=== PATIENT | male | born 1955 | race Caucasian/White ===

== ENCOUNTER 2017-03-14 13:03 | Observation (INO) | payer OTHER ==
[~2017-03-14] VITALS: Ht 188 cm; Wt 130.1 kg
[~2017-03-14 13:03] MED LIST: GABAPENTIN600 MG PO; HUMALIN R100 UNITS/ SC; LANTUS SOL100 UNITS/; NICOTINE T21 MG/24 H TOP; PROTONIX40 MG PO; VICODIN HP1 TA1 PO
--- NOTE | 2017-03-14 15:46 | DIAGNOSTIC IMAGING REPORT ---
PROCEDURE: CT ABD/PELVIS WITH CONTRAST INDICATION: Lower abdominal pain and vomiting. Diarrhea. Elevated white blood count (14,800). Prior cholecystectomy. TECHNIQUE: 145 ml of Isovue 300 were injected intravenously and axial images were obtained of the entire abdomen and pelvis with sagittal and coronal reformations. COMPARISON: Comparison made to CT abdomen pelvis on 09/06/2016. FINDINGS: ABDOMEN: Cholecystectomy (surgical clips). Liver, spleen, pancreas, kidneys, and aorta are normal. Bowel pattern is normal, including appendix. Mild degenerative changes of the lumbar spine. PELVIS: Mild sigmoid diverticulosis, but no evidence of diverticulitis. Small amount of fluid in the rectum. Mild enlargement prostate (4.5 cm). IMPRESSION: 1. Status post cholecystectomy. 2. Mild increased fluid in the rectum. Consider enterocolitis. 3. Mild sigmoid diverticulosis. No evidence of diverticulitis. 4. Mild enlargement of the prostate. 5. Findings discussed with Dr. Angela Jones. All CT scans at this facility use dose modulation, iterative reconstruction, and/or weight-based dosing when appropriate to reduce radiation dose to as low as reasonably achievable.
--- NOTE | 2017-03-14 16:06 | ED NURSING NOTES ---
Clinical Report - Nurses [facility] [place] [address] 03/14/2017 13:05 Patient: TEX GIRON TRIAGE Triage time 13:13. Acuity: LEVEL 3. Chief Complaint: ABDOMINAL PAIN, NAUSEA, VOMITING and DIARRHEA and (and cramping). Alert. SEPSIS SCREEN: Sepsis Screen. Negative (no infection suspected/documented). --13:18 Palmira Mejía R.N. 13:14 03/14/17. BP: 148/83. HR: 96. RR: 18. O2 saturation: 94%. Temp: 98.4 F. Pain level now: 05/13. --13:18 Palmira Mejía R.N. Weight: 127 kg. Height/Length: 74 inches. BMI: 36. --13:16 Palmira Mejía R.N. Medications Gabapentin Oral (Tablet 600 mg) 2 tablets, 2x a day. Hydrocodone-Acetaminophen Oral (Tablet 10-325 mg) 1 tablet, 2x a day as needed. Insulin Regular Human Injection (Solution 100 unit/mL), Taken on sliding scale. Lantus Subcutaneous 50 units, 2x a day. --13:16 Palmira Mejía R.N. Allergies No Known Drug Allergy. --13:16 Palmira Mejía R.N. History Arrived by private vehicle. Historian: patient and family. Accompanied by family. Primary physician (Sameera). Onset. (3 days ago). SOCIAL HX: Heavy tobacco smoker (cigarette)- 1-2 packs per day. Occasional alcohol use. No drug use. The patient was not exposed to MRSA. --13:18 Palmira Mejía R.N. PROBLEMS: Weakness. Diabetes Mellitus. --13:18 Palmira Mejía R.N. ADDITIONAL SURGERIES: Cholecystectomy. --13:18 Palmira Mejía R.N. Interventions ID band on patient. To room. --13:18 Palmira Mejía R.N. NURSING PROGRESS NOTES 13:35 03/14/2017 Site #1 started via IV in the right antecubital space with an 20g angiocath, with aseptic technique and good blood return; one attempt. Blood drawn: rainbow set. Labeled in the presence of the patient and sent to the lab. Saline lock flushed with saline. --13:35 Palmira Mejía R.N. 13:35 03/14/2017 Started bag #1 1000 mL IV Fluids IV NS (Saline); at 999 mL/hr via site #1 via IV pump. Confirmed 5 rights. --13:35 Palmira Mejía R.N. 13:36 03/14/2017 Zofran (Ondansetron HCl) IVP 8 mg given over 3 minute(s) via site #1. Confirmed 5 rights. --13:36 Palmira Mejía R.N. 13:36 03/14/17. Patient identifiers checked. Call light placed in reach. Bed placed in lowest position. Patient ready for evaluation- chart flagged. --13:36 Palmira Mejía R.N. 13:33. EKG time: (1333). EKG was ordered, performed by a tech and shown to the ED physician. --13:37 Adam Schwab, LAURE Tech1 14:21 03/14/17. Patient ID band checked for patient name and birthdate. Clean catch urine collected with return of gracy-colored urine; sample sent to lab for urinalysis and culture. Specimen labeled in the presence of the patient. --14:21 Palmira Mejía R.N. 14:30. Oxygen administered by nasal cannula at 2 liters. --14:35 Palmira Mejía R.N. 14:35 03/14/2017 IV Fluids IV NS Bag Change: bag #1 completed. Total amount infused: 1000. STARTED bag #2 (1000 mL) at 1000 mL/hr via IV pump. Confirmed 5 rights. IV patency established. IV site checked: no pain, redness, or swelling. IV flushed thoroughly. --14:35 Palmira Mejía R.N. 14:40 03/14/2017 PHENERGAN (Promethazine HCl) IVP 25 mg given over 2 minute(s) via site #1. Allergies verified and confirmed 5 rights. --14:42 Palmira Mejía R.N. 14:41 03/14/17. ( Pt assisted to reposition himself in bed.). --14:41 Palmira Mejía R.N. 14:30 03/14/17. BP: 145/98. HR: 88. RR: 18. O2 saturation: 98%. --15:30 Palmira Mejía R.N. 15:30 03/14/17. BP: 131/74. HR: 87. RR: 18. O2 saturation: 98%. --15:31 Palmira Mejía R.N. ( RT in room drawing ABGs). --15:31 Palmira Mejía R.N. 16:05 03/14/17. BP: 137/88. HR: 84. RR: 18. O2 saturation: 97%. Temp: deferred. Pain level now: 02/10. --16:10 Joslyn Wesley R.N. 16:05. ( Pt ambulated to bathroom, steady on feet .). --16:10 Joslyn Wesley R.N. 16:33 03/14/2017 IV Fluids IV NS Bag Change: bag #2 completed. Total amount infused: 1000. STARTED bag #3 (1000 mL) at 1000 mL/hr via IV pump. Confirmed 5 rights. IV patency established. IV site checked: no pain, redness, or swelling. IV flushed thoroughly. --16:33 Palmira Mejía R.N. 16:39 03/14/17. ( Accucheck 67.). --16:39 Palmira Mejía R.N. 16:42 03/14/17. ( Pt given 2 juices and jello.). --16:42 Palmira Mejía R.N. DISPOSITION / DISCHARGE 17:37 03/14/17. BP: 125/64. HR: 79. RR: 18. O2 saturation: 99% on nasal cannula at 2 liters/minute. Temp: 98.4 F. Pain level now: 04/12. --17:42 Palmira Mejía R.N. 17:43 03/14/17. Condition at departure: improved. Disposition: observation in Acute Care. Report was given via a phone call. Report included patient's care, treatment, medications, reviewed medication reconcilliation, and condition (including any recent changes or anticipated changes). All questions were answered. Report was acknowledged and care was transferred. (to Brandie). --17:43 Palmira Mejía R.N. Locked/Released at 03/24/2017 7:57 by Michelle Sotelo R.N.
--- NOTE | 2017-03-14 16:06 | ED ORDER SUMMARY ---
..... 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 verbal order read back to Kristin JUSTIN) (Ack 14:21 Mickey) (14:30 LSullivan R.N.) Acetone, Serum Urgent (14:29 03/14/2017 Kristin JUSTIN) (Ack 14:31 Mickey) (14:47 MWinterer R.N.) CT Abd/Pel w Cont (Yes) (N/A) Urgent (14:33 03/14/2017 Kristin JUSTIN) (Ack 14:34 Mickey) (15:08 Bethany) ABG (G) Urgent (15:05 03/14/2017 Kristin JUSTIN) (Ack 15:11 Mickey) (15:41 KEpting) MEDICATION ORDERS: Phenergan IV 25 mg (HIGH ALERT MEDICATION, NOW) (14:34 03/14/2017 Kristin JUSTIN) (14:42 LSullivan R.N.) IV FLUIDS: IV NS : initial bolus 1000 mL (1000 mL/hr), then none - (NOW) (13:18 03/14/2017 Kristin JUSTIN) (13:35 LSullivan R.N.) Zofran IV 8 mg (NOW) (13:18 03/14/2017 Kristin JUSTIN) (13:36 Prasanth R.N.) IV NS : initial bolus 1000 mL (1000 mL/hr), then 1000 mL/hr (NOW) (14:27 03/14/2017 Kristin JUSTIN) (Ack 14:36 LSullivan R.N.) Levaquin IV 500 mg/100mL (NOW) (15:50 03/14/2017 Kristin JUSTIN) (Cancelled: Other16:05 Kristin JUSTIN) Flagyl IV 500 mg/100mL (NOW) (15:50 03/14/2017 Kristin JUSTIN) (Cancelled: Other16:05 Kristin JUSTIN) ORDER SHEET NOTES: [Electronically signed by Angela Jones MD (22:24 03/14/2017)] [Electronically signed by Michelle Sotelo R.N. (07:57 03/24/2017)] [Electronically locked/signed by Michelle Sotelo R.N. (07:57 03/24/2017)]
--- NOTE | 2017-03-14 16:06 | ED ORDER SUMMARY ---
..... 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 verbal order read back to Kristin JUSTIN) (Ack 14:21 Mickey) (14:30 LSullivan R.N.) Acetone, Serum Urgent (14:29 03/14/2017 Kristin JUSTIN) (Ack 14:31 Mickey) (14:47 MWinterer R.N.) CT Abd/Pel w Cont (Yes) (N/A) Urgent (14:33 03/14/2017 Kristin JUSTIN) (Ack 14:34 Mickey) (15:08 Bethany) ABG (G) Urgent (15:05 03/14/2017 Kristin JUSTIN) (Ack 15:11 Mickey) (15:41 KEpting) MEDICATION ORDERS: Phenergan IV 25 mg (HIGH ALERT MEDICATION, NOW) (14:34 03/14/2017 Kristin JUSTIN) (14:42 LSullivan R.N.) IV FLUIDS: IV NS : initial bolus 1000 mL (1000 mL/hr), then none - (NOW) (13:18 03/14/2017 Kristin JUSTIN) (13:35 LSullivan R.N.) Zofran IV 8 mg (NOW) (13:18 03/14/2017 Kristin JUSTIN) (13:36 Prasanth R.N.) IV NS : initial bolus 1000 mL (1000 mL/hr), then 1000 mL/hr (NOW) (14:27 03/14/2017 Kristin JUSTIN) (Ack 14:36 LSullivan R.N.) Levaquin IV 500 mg/100mL (NOW) (15:50 03/14/2017 Kristin JUSTIN) (Cancelled: Other16:05 Kristin JUSTIN) Flagyl IV 500 mg/100mL (NOW) (15:50 03/14/2017 Kristin JUSTIN) (Cancelled: Other16:05 Kristin JUSTIN) ORDER SHEET NOTES: [Electronically signed by Angela Jones MD (22:24 03/14/2017)] [Electronically signed by Michelle Sotelo R.N. (07:57 03/24/2017)] [Electronically locked/signed by Michelle Sotelo R.N. (07:57 03/24/2017)]
--- NOTE | 2017-03-14 16:06 | ED CLINICAL REPORT ---
Clinical Report - Physicians/Mid Levels [facility] [address] [place] [address] 03/14/2017 13:05 Patient: TEX GIRON Time Seen: 13:17. Arrived- By private vehicle. Historian- patient. HISTORY OF PRESENT ILLNESS Chief Complaint: VOMITING. This started about 3 days ago and is still present. No recent travel. He has had nausea, vomiting, diarrhea and moderate, crampy abdominal pain. No black stools, bloody stools, constipation, flank pain or history of possible bad food exposure. No known contact with a sick individual or change in routine. Has not recently been camping or on antibiotics. The illness is described as moderate. Similar symptoms previously: Occasionally. Recent medical care: Not recently seen/assessed. REVIEW OF SYSTEMS No fever, muscle aches, difficulty with urination, dark urine or headache. No sore throat, cough, chest pain, difficulty breathing or excessive urination. No skin rash, jaundice, back pain, fainting episodes or blurred vision. The patient has had dizziness. All systems otherwise negative, except as recorded above. PAST HISTORY Problems: Weakness. Diabetes Mellitus. Additional Surgeries: Cholecystectomy. Medications: Gabapentin Oral (Tablet 600 mg) 2 tablets, 2x a day. Hydrocodone-Acetaminophen Oral (Tablet 10-325 mg) 1 tablet, 2x a day as needed. Insulin Regular Human Injection (Solution 100 unit/mL), Taken on sliding scale. Lantus Subcutaneous 50 units, 2x a day. Allergies: No Known Drug Allergy. SOCIAL HISTORY Smoker- current status unknown. Occasional alcohol use. No drug use. ADDITIONAL NOTES The nursing notes have been reviewed. PHYSICAL EXAM Vital Signs: 03/14/2017 13:14 BP: 148/83. HR: 96. RR: 18. O2 saturation: 94%. Temp: 98.4 F. Pain level now: 8/10. Have been reviewed. Appearance: Alert. Oriented X3. No acute distress. (Patient appears moderately chronically ill.). Eyes: Pupils equal, round and reactive to light. Eyes normal inspection. ENT: Nose normal. Neck: Normal inspection. CVS: Normal heart rate and rhythm. Heart sounds normal. Pulses normal. Respiratory: No respiratory distress. Breath sounds normal. Abdomen: Soft and nontender. Obese. Back: Normal inspection. No CVA tenderness. Skin: Skin warm and dry. Normal skin color. No rash. Normal skin turgor. Extremities: No lower extremity edema. Neuro: (Patient is ambulatory without assistance. He has an essential tremor. Patient is grossly oriented and has no focal deficits.). LABS, X-RAYS, AND EKG EKG: EKG time: (1333). Normal sinus rhythm. Rate: 94. Normal P waves. Normal KORTNEY. Left anterior fascicular block. Normal axis. Normal ST and T waves, QT and QTc. Changes present when compared to prior EKG. (Sep 2016). The study has been interpreted contemporaneously by me. The study has been independently viewed by me. The EKG appears to be a good tracing. Laboratory Tests: UA-Culture if indicated: (SYLWIA: 03/14/2017 14:11) ( [facility] 03/14/2017 15:20) Final results Test Result Flag Units (Reference) URINE COLOR DARK YELLOW URINE APPEARANCE CLEAR URINE GLUCOSE NEGATIVE (NEGATIVE) URINE BILIRUBIN ICTOTEST NEGATIVE (NEGATIVE) URINE KETONE TRACE (NEGATIVE) URINE SPECIFIC GRAVITY 1.020 (1.010-1.030) URINE PH 8.0 (5.0-8.0) URINE PROTEIN 3+ (NEGATIVE) URINE UROBILINOGEN 1.0 EU/dL (0.2-1.0) URINE NITRITE NEGATIVE (NEGATIVE) URINE BLOOD NEGATIVE (NEGATIVE) URINE LEUK ESTERASE NEGATIVE (NEGATIVE) URINE RBC 3-5 rbc/hpf (0-1) URINE WBC 0-1 wbc/hpf (0-1) URINE EPITHELIAL CELLS RARE EPI/hpf (0-5) URINE BACTERIA NONE SEEN (NONE SEEN) URINE COMMENT CULT NOT INDICATED 2+ AMORPHOUS1+ MUCUSURINE CULTURES ARE SET-UP BASED ON THE FOLLOWING CRITERIA:POSITIVE NITRITEPOSITIVE LEUKOCYTE ESTERASEGREATER THAN 10 WHITE BLOOD CELLSMODERATE (2+) OR GREATER BACTERIA CBC w Diff: (SYLWIA: 03/14/2017 13:20) ( [facility] 03/14/2017 13:46) Final results Test Result Flag Units (Reference) WHITE BLOOD COUNT 14.8 H K/uL (4.5-11.5) RED BLOOD COUNT 5.85 M/uL (4.50-5.90) HEMOGLOBIN 16.9 gm/dL (13.5-17.5) HEMATOCRIT 49.8 % (41.0-53.0) MEAN CELL VOLUME 85 fL (80-100) MEAN CORPUSCULAR HGB 29 pg (26-34) MEAN CORPUSCULAR HGB CONC 34 g/dL (31-37) RED CELL DISTRIBUTION WIDTH 13.6 % (11.6-14.8) PLATELET COUNT 422 H K/uL (150-400) NEUTROPHIL % 61.4 % (50-75) LYMPH % 29.9 % (25-40) MONO % 6.7 % (3-14) EOSINOPHIL % 1.6 % (0-4) BASOPHIL % 0.4 % (0-2) Acetone, Serum: (SYLWIA: 03/14/2017 13:20) ( [facility] 03/14/2017 14:46) Final results Test Result Flag Units (Reference) ACETONE, SERUM QUALITATIVE POSITIVE (NEGATIVE) CHEM 13 PANEL: (SYLWIA: 03/14/2017 13:20) ( [facility] 03/14/2017 14:08) Final results Test Result Flag Units (Reference) GLUCOSE 259 H mg/dL (70-110) BUN 20 H mg/dL (7-18) CREATININE 1.1 mg/dL (0.6-1.3) Estimated GFR >60 mL/min Estimated GFR- >60 mL/min Note: Persistent reduction over 3 months in eGFR<60 mL/min/1.73 m2 defines CKD. Patients with eGFR values>=60 mL/min/1.73 m2 may also have CKD if evidence ofpersistent proteinuria. Additional information may be foundat www.kidney.org. SODIUM 137 mmol/L (136-145) POTASSIUM 3.3 L mmol/L (3.5-5.1) CHLORIDE 97 L mmol/L (98-107) CARBON DIOXIDE 33 H mmol/L (21-32) CALCIUM 8.8 mg/dL (8.5-10.1) TOTAL PROTEIN 8.1 g/dL (6.4-8.2) ALBUMIN 3.2 L g/dL (3.3-5.0) BILIRUBIN, TOTAL 0.4 mg/dL (0.0-1.0) ALKALINE PHOSPHATASE 91 U/L (46-116) AST (SGOT) 17 U/L (15-37) ALT (SGPT) 18 U/L (12-78) MAGNESIUM 2.0 mg/dL (1.8-2.4) CPK 44 U/L (24-260) TROPONIN I <0.05 L ng/mL (0.00-1.5) TROPONIN REFERENCE RANGE:<0.1 NEGATIVE0.1-1.5 INDETERMINANT>1.5 POSITIVE ABG: (SYLWIA: 03/14/2017 15:05) ( [facility] 03/14/2017 15:34) Final results Test Result Flag Units (Reference) FIO2 28 % (20-101) ABG MODE OF DELIVERY NC MODIFIED JULY TEST POSITIVE? YES LITERS PER MIN. 2 L/MIN (0-20) ARTERIAL BLOOD GAS SITE RR ARTERIAL BLOOD GAS pH 7.46 H (7.35-7.45) ABG PCO2 48.1 H mmHg (35-45) ABG PO2 80.3 mmHg (80.0-100.0) ABG BASE EXCESS 8.9 *H mmol/L (-6.0--6.0) ABG HCO3 33.9 *H mmol/L (20.0-26.0) ABG TCO2 35.4 *H mmol/L (24.0-30.0) ABG HlSiX9c 64.1 H mmHg (7.0-14.0) *NOTE: Normal rangeis based on aFIO2 of 21% ABG SAT O2 96.5 % (95.1-100.0) ABG TOTAL HEMOGLOBIN 15.8 g/dL (14.0-18.0) ABG O2 HEMOGLOBIN 94.5 L % (95.0-100.0) ABG CARBOXYHEMOGLOBIN 1.9 H % (0.5-1.5) ABG METHEMOGLOBIN 0.2 L % (0.4-1.5) ABG RHEMOGLOBIN 3.4 % . Pulse Oximetry: 03/14/2017 13:14 O2 saturation: 94%. (FIO2 - room air). Interpretation: normal. PROGRESS AND PROCEDURES Course of Care: Patient was worked up for his vomiting, diarrhea, weakness, and abdominal cramping. He was found to have an elevated blood glucose at 259. His serum acetone was positive, but his anion gap was normal, and patient's ABG showed no acidosis. CT scan was ultimately performed on his abdomen and pelvis as his white blood cell count was 14.8, and this did demonstrate possible enterocolitis. Given the patient's dehydration, as well as his hyperglycemia and positive acetone, I did feel that the patient should be observed in the hospital to make sure that he did not descend into diabetic ketoacidosis. At the request of the admitting physician, I did cancel antibiotic orders in favor of observation to see if colitis would resolve on its own. Discussed case with patient's primary care provider, (Sameera). Reviewed test results and need for additional work-up. Agreed upon treatment plan and decision to admit. Health care provider will see patient in hospital. Old medical records reviewed. Disposition: Admitted to Acute Care. Condition: stable and serious. CLINICAL IMPRESSION Acute infectious colitis. No ischemic colitis. Moderate hyperglycemia. (Electronically signed by Angela Jones MD 03/14/2017 22:24) Addenda for BREE TEX Bernardo VisitID: [id number] Date: 03/14/2017 03/24/2017 7:57 Locked for billing purposes (Electronically signed by Michelle Sotelo R.N. - 03/24/2017 7:57)
--- NOTE | 2017-03-14 16:06 | ED CLINICAL REPORT ---
Clinical Report - Physicians/Mid Levels [facility] [address] [address] 03/14/2017 13:05 Patient: TEX GIRON Time Seen: 13:17. Arrived- By private vehicle. Historian- patient. HISTORY OF PRESENT ILLNESS Chief Complaint: VOMITING. This started about 3 days ago and is still present. No recent travel. He has had nausea, vomiting, diarrhea and moderate, crampy abdominal pain. No black stools, bloody stools, constipation, flank pain or history of possible bad food exposure. No known contact with a sick individual or change in routine. Has not recently been camping or on antibiotics. The illness is described as moderate. Similar symptoms previously: Occasionally. Recent medical care: Not recently seen/assessed. REVIEW OF SYSTEMS No fever, muscle aches, difficulty with urination, dark urine or headache. No sore throat, cough, chest pain, difficulty breathing or excessive urination. No skin rash, jaundice, back pain, fainting episodes or blurred vision. The patient has had dizziness. All systems otherwise negative, except as recorded above. PAST HISTORY Problems: Weakness. Diabetes Mellitus. Additional Surgeries: Cholecystectomy. Medications: Gabapentin Oral (Tablet 600 mg) 2 tablets, 2x a day. Hydrocodone-Acetaminophen Oral (Tablet 10-325 mg) 1 tablet, 2x a day as needed. Insulin Regular Human Injection (Solution 100 unit/mL), Taken on sliding scale. Lantus Subcutaneous 50 units, 2x a day. Allergies: No Known Drug Allergy. SOCIAL HISTORY Smoker- current status unknown. Occasional alcohol use. No drug use. ADDITIONAL NOTES The nursing notes have been reviewed. PHYSICAL EXAM Vital Signs: 03/14/2017 13:14 BP: 148/83. HR: 96. RR: 18. O2 saturation: 94%. Temp: 98.4 F. Pain level now: 8/10. Have been reviewed. Appearance: Alert. Oriented X3. No acute distress. (Patient appears moderately chronically ill.). Eyes: Pupils equal, round and reactive to light. Eyes normal inspection. ENT: Nose normal. Neck: Normal inspection. CVS: Normal heart rate and rhythm. Heart sounds normal. Pulses normal. Respiratory: No respiratory distress. Breath sounds normal. Abdomen: Soft and nontender. Obese. Back: Normal inspection. No CVA tenderness. Skin: Skin warm and dry. Normal skin color. No rash. Normal skin turgor. Extremities: No lower extremity edema. Neuro: (Patient is ambulatory without assistance. He has an essential tremor. Patient is grossly oriented and has no focal deficits.). LABS, X-RAYS, AND EKG EKG: EKG time: (1333). Normal sinus rhythm. Rate: 94. Normal P waves. Normal [place]RT[place]. Left anterior fascicular block. Normal axis. Normal ST and T waves, QT and QTc. Changes present when compared to prior EKG. (Sep 2016). The study has been interpreted contemporaneously by me. The study has been independently viewed by me. The EKG appears to be a good tracing. Laboratory Tests: UA-Culture if indicated: (SYLWIA: 03/14/2017 14:11) ( [facility] [place] 03/14/2017 15:20) Final results Test Result Flag Units (Reference) URINE COLOR DARK YELLOW URINE APPEARANCE CLEAR URINE GLUCOSE NEGATIVE (NEGATIVE) URINE BILIRUBIN ICTOTEST NEGATIVE (NEGATIVE) URINE KETONE TRACE (NEGATIVE) URINE SPECIFIC GRAVITY 1.020 (1.010-1.030) URINE PH 8.0 (5.0-8.0) URINE PROTEIN 3+ (NEGATIVE) URINE UROBILINOGEN 1.0 EU/dL (0.2-1.0) URINE NITRITE NEGATIVE (NEGATIVE) URINE BLOOD NEGATIVE (NEGATIVE) URINE LEUK ESTERASE NEGATIVE (NEGATIVE) URINE RBC 3-5 rbc/hpf (0-1) URINE WBC 0-1 wbc/hpf (0-1) URINE EPITHELIAL CELLS RARE EPI/hpf (0-5) URINE BACTERIA NONE SEEN (NONE SEEN) URINE COMMENT CULT NOT INDICATED 2+ AMORPHOUS1+ MUCUSURINE CULTURES ARE SET-UP BASED ON THE FOLLOWING CRITERIA:POSITIVE NITRITEPOSITIVE LEUKOCYTE ESTERASEGREATER THAN 10 WHITE BLOOD CELLSMODERATE (2+) OR GREATER BACTERIA CBC w Diff: (SYLWIA: 03/14/2017 13:20) ( [facility] [place] 03/14/2017 13:46) Final results Test Result Flag Units (Reference) WHITE BLOOD COUNT 14.8 H K/uL (4.5-11.5) RED BLOOD COUNT 5.85 M/uL (4.50-5.90) HEMOGLOBIN 16.9 gm/dL (13.5-17.5) HEMATOCRIT 49.8 % (41.0-53.0) MEAN CELL VOLUME 85 fL (80-100) MEAN CORPUSCULAR HGB 29 pg (26-34) MEAN CORPUSCULAR HGB CONC 34 g/dL (31-37) RED CELL DISTRIBUTION WIDTH 13.6 % (11.6-14.8) PLATELET COUNT 422 H K/uL (150-400) NEUTROPHIL % 61.4 % (50-75) LYMPH % 29.9 % (25-40) MONO % 6.7 % (3-14) EOSINOPHIL % 1.6 % (0-4) BASOPHIL % 0.4 % (0-2) Acetone, Serum: (SYLWIA: 03/14/2017 13:20) ( [facility] [place] [place] 03/14/2017 14:46) Final results Test Result Flag Units (Reference) ACETONE, SERUM QUALITATIVE POSITIVE (NEGATIVE) CHEM 13 PANEL: (SYLWIA: 03/14/2017 13:20) ( [facility] [place] [place] 03/14/2017 14:08) Final results Test Result Flag Units (Reference) GLUCOSE 259 H mg/dL (70-110) BUN 20 H mg/dL (7-18) CREATININE 1.1 mg/dL (0.6-1.3) Estimated GFR >60 mL/min Estimated GFR- >60 mL/min Note: Persistent reduction over 3 months in eGFR<60 mL/min/1.73 m2 defines CKD. Patients with eGFR values>=60 mL/min/1.73 m2 may also have CKD if evidence ofpersistent proteinuria. Additional information may be foundat [email or web address].org. SODIUM 137 mmol/L (136-145) POTASSIUM 3.3 L mmol/L (3.5-5.1) CHLORIDE 97 L mmol/L (98-107) CARBON DIOXIDE 33 H mmol/L (21-32) CALCIUM 8.8 mg/dL (8.5-10.1) TOTAL PROTEIN 8.1 g/dL (6.4-8.2) ALBUMIN 3.2 L g/dL (3.3-5.0) BILIRUBIN, TOTAL 0.4 mg/dL (0.0-1.0) ALKALINE PHOSPHATASE 91 U/L (46-116) AST (SGOT) 17 U/L (15-37) ALT (SGPT) 18 U/L (12-78) MAGNESIUM 2.0 mg/dL (1.8-2.4) CPK 44 U/L (24-260) TROPONIN I <0.05 L ng/mL (0.00-1.5) TROPONIN REFERENCE RANGE:<0.1 NEGATIVE0.1-1.5 INDETERMINANT>1.5 POSITIVE ABG: (SYLWIA: 03/14/2017 15:05) ( [facility] 03/14/2017 15:34) Final results Test Result Flag Units (Reference) FIO2 28 % (20-101) ABG MODE OF DELIVERY NC MODIFIED JULY TEST POSITIVE? YES LITERS PER MIN. 2 L/MIN (0-20) ARTERIAL BLOOD GAS SITE RR ARTERIAL BLOOD GAS pH 7.46 H (7.35-7.45) ABG PCO2 48.1 H mmHg (35-45) ABG PO2 80.3 mmHg (80.0-100.0) ABG BASE EXCESS 8.9 *H mmol/L (-6.0--6.0) ABG HCO3 33.9 *H mmol/L (20.0-26.0) ABG TCO2 35.4 *H mmol/L (24.0-30.0) ABG [id number] 64.1 H mmHg (7.0-14.0) *NOTE: Normal rangeis based on aFIO2 of 21% ABG SAT O2 96.5 % (95.1-100.0) ABG TOTAL HEMOGLOBIN 15.8 g/dL (14.0-18.0) ABG O2 HEMOGLOBIN 94.5 L % (95.0-100.0) ABG CARBOXYHEMOGLOBIN 1.9 H % (0.5-1.5) ABG METHEMOGLOBIN 0.2 L % (0.4-1.5) ABG RHEMOGLOBIN 3.4 % . Pulse Oximetry: 03/14/2017 13:14 O2 saturation: 94%. (FIO2 - room air). Interpretation: normal. PROGRESS AND PROCEDURES Course of Care: Patient was worked up for his vomiting, diarrhea, weakness, and abdominal cramping. He was found to have an elevated blood glucose at 259. His serum acetone was positive, but his anion gap was normal, and patient's ABG showed no acidosis. CT scan was ultimately performed on his abdomen and pelvis as his white blood cell count was 14.8, and this did demonstrate possible enterocolitis. Given the patient's dehydration, as well as his hyperglycemia and positive acetone, I did feel that the patient should be observed in the hospital to make sure that he did not descend into diabetic ketoacidosis. At the request of the admitting physician, I did cancel antibiotic orders in favor of observation to see if colitis would resolve on its own. Discussed case with patient's primary care provider, (Sameera). Reviewed test results and need for additional work-up. Agreed upon treatment plan and decision to admit. Health care provider will see patient in hospital. Old medical records reviewed. Disposition: Admitted to Acute Care. Condition: stable and serious. CLINICAL IMPRESSION Acute infectious colitis. No ischemic colitis. Moderate hyperglycemia. (Electronically signed by Angela Jones MD 03/14/2017 22:24) Addenda for BREE TEX Bernardo VisitID: [id number] Date: 03/14/2017 03/24/2017 7:57 Locked for billing purposes (Electronically signed by Michelle Sotelo R.N. - 03/24/2017 7:57)
[2017-03-14 18:08] VITALS: BP 143/119
[2017-03-14] MEDS ORDERED: NEURONTIN300 MG PO ×2 (18:46)
[2017-03-14 22:44] VITALS: BP 137/67
--- NOTE | 2017-03-14 23:20 | HISTORY AND PHYSICAL ---
ADMITTED: 03/14/2017 CHIEF COMPLAINT: 1. Nausea 2. Vomiting 3. Diarrhea 4. Weakness 5. Elevated blood sugars HISTORY OF PRESENT ILLNESS: The patient is a 61-year-old white male who presented to the emergency department this afternoon complaining of a 3-day history of nausea, vomiting, and diarrhea. He has not been able to keep much of anything down, neither liquids nor solids. Most liquids he has thrown up. If he tries to eat anything, he throws up and has loose stools. He has been going to the bathroom with loose stools about once every 30 minutes to 1 hour. He has had no blood in his stools. He has had no hematemesis. He is having no problems with fevers or chills. He has had some lower abdominal pain, but not excruciating. He has felt lightheaded when he has been trying to be up and ambulating and going to the bathroom. He finally felt he should get in to get checked as he was not getting any better at home and symptoms were persisting longer than he thought they should. MEDICAL/SURGICAL HISTORY: Past medical history: Remarkable for longstanding adult-onset diabetes. He has been on insulin for about 18 years. He may have an element of gastroparesis with this, and does have some neuropathy and neuralgia problems that he attributes to the diabetes, though it may be of other causes. He has had some mild COPD, gastroesophageal reflux, and has a history of hepatitis C that has been treated with Harvoni treatment. Past surgical history is remarkable for a cholecystectomy done a number of years ago. He has had no other abdominal surgeries. He has had bilateral ankle fusions related to fractures and arthritis developing in his ankles. This contributes to his lower extremity pain. MEDICATIONS: Current medications include: 1. Hydrocodone 10/APAP 325 one tablet in the morning and 2 at bedtime for pain control. 2. He is also taking gabapentin 600 mg strength 2 tablets morning and 2 tablets evening for neuralgia and neuropathy pain in his legs. 3. He is using Lantus insulin 60 units morning and evening. 4. Apidra insulin 60 units before each meal. (He has not been taking oral medication for diabetes for quite a few years.) 5. He is taking pantoprazole 40 mg 1 every morning for stomach acid control. 6. Ranitidine 150 mg every evening for stomach acid control. 7. He has not been taking aspirin. 8. He has been prescribed metformin extended release 1 every evening to see if this will help bring down blood sugars some. It is not clear if he has continued to take this or if he has stopped. 9. He has also been prescribed metoclopramide 1/2 or 1 tablet at bedtime to see if this will help prevent nausea in the morning and emesis that he has nearly every morning. ALLERGIES: 1. NONE. 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 He did a lot of filming of [employer] when he was younger. He is currently . He does have his 2 children living with him and with his mother. He does smoke 1 to 1-1/2 packs per day, though is trying to cut down. He does drink some alcohol, about 1 -2 beers 3 times per week. He does not use other drugs. FAMILY HISTORY: Remarkable for a father who is around at 84 and has diabetes. His father lives in [place]. The patient's mother is 81 or 82 and lives in the [facility]. The patient lives with his mother currently. She has problems with COPD, diabetes, osteoarthritis, ASCVD, hypertension, and hyperlipidemia. REVIEW OF SYSTEMS: HEENT is okay. The patient is having no major visual problems. Respiratory is okay, but he does get some shortness of breath with exertion. Cardiovascular has been okay with no major chest pain or irregular heartbeat issues. Gastrointestinal is as noted above. He does have some reflux issues and gastric hyperacidity. He also has a history of frequent vomiting in the morning. Genitourinary: Okay with no problems passing urine. Musculoskeletal is remarkable for lower extremity pain and ankle pain. Neurologic intra-atrial remarkable for some neuropathy-type pain in the lower extremities. Psychiatric is okay. Skin is okay. The patient prefers to be FULL CODE. PHYSICAL EXAMINATION: GENERAL: Reveals the patient to be an obese male appearing to be of his stated age, perhaps a little older. He does have a spontaneous head tremor. VITAL SIGNS: Temperature is 98. Blood pressure is initially 143/119. O2 saturation is 96% on room air. Pulse is around 90 and regular. HEENT: Head is normal. Ear canals and tympanic membranes are normal. Eyes show pupils equal, round, and reactive to light with normal extraocular movements. Fundi reveal flat discs and normal vessels. Nose and throat are clear. NECK: Supple without adenopathy. No bruits are heard. CHEST: Clear to auscultation and percussion. I:E ratio is about 1:1. There is no wheezing. HEART: Reveals normal S1 and S2 with no distinct murmur. There is no axillary adenopathy. ABDOMEN: Nondistended. There is some [id number] tenderness in the right lower quadrant area, mild tenderness in the suprapubic area, and mild tenderness in the left lower quadrant area. Bowel tones are normal. GENITALIA: Show normal circumcised male. Testes are descended bilaterally. There is no evidence of hernia. RECTAL: Exam is done. Prostate gland is not easily felt due to body habitus. There is no rectal mass. Rectal liquid is guaiac-negative. EXTREMITIES: Show no edema. There are some scattered lower leg venous varicosities. Dorsalis pedis pulses +2 are noted, left and right. Sensation is normal on the feet. The patient does have some discomfort with movement of his ankles with significant restriction of dorsiflexion and plantar flexion. SKIN: Normal. Okay with no significant lesions. NEUROLOGIC: Reveals the patient to be alert and oriented x3. Cranial nerves are normal. Motor exam is symmetric. LAB/IMAGING: Show white blood cell count to be 14,800 with hemoglobin 16 and hematocrit 49.8. Sodium is 137, potassium 3.3, chloride is 97, CO2 is 33, glucose 259, creatinine 1.1, BUN 20. Magnesium level is 2.2. Lactic acid level was normal. Serum ketones are positive. ABG is okay with pH 7.46, pCO2 of 48, and pO2 of 80.3. Urinalysis shows 3+ protein and specific gravity of 1.020. There is no evidence of infection. There is no glucose in the urine. Troponin I is less than 0.05. SGOT is 17, SGPT is 18, total bilirubin is 0.4. Magnesium level is 2.0. CPK is 44. Abdominal CT scan shows the patient to be status post cholecystectomy with other abdominal organs appearing normal. There is some fluid in the rectum consistent with colitis. There is no evidence of obstruction. There is some sigmoid diverticula, but no evidence of diverticulitis. EKG shows Q's in lead III and aVF, suggesting possible old inferior ME. There are no ST-segment elevations or depressions or T-wave inversions. There is T-wave flattening in aVL. IMPRESSION: 1. The patient is presenting with nausea, vomiting, diarrhea, which is most likely due to a viral gastroenteritis problem. 2. His blood sugars are elevated and not well controlled currently. 3. He also shows a low potassium and has some mild ketosis, probably due to not eating and to blood sugars being a little high. He has not in ketoacidosis. 4. Other problems include chronic lower extremity pain with an element of neuropathy and an element of osteoarthritis affecting his ankles and feet. 5. He also has chronic tremor. 6. He has a history of hepatitis C, which seems to be adequately treated. 7. He also is a smoker. 8. He has mild chronic obstructive pulmonary disease. PLAN: The patient is admitted to observation initially. He will be rehydrated and blood sugars will be followed and he will be placed on sliding scale insulin as well his Lantus insulin at a lower dose of 20 units every 12 hours. He may need to have this increased. He will be given supplemental potassium. He will be started back on his oral medications for pain control to see how he tolerates this. He will have his diet advanced to full liquids and then to soft diet as he seems to have his intestinal tract quiet down. Stool will be sent for fecal leukocytes and for bacterial culture. Despite the white blood cell count being slightly elevated, I do not think it would be appropriate to start antibiotics until cultures have been obtained and until it is clear that he is not getting better or is worsening. He will be continued on the gabapentin for help with neuropathy pain and will be started on oral oxycodone to help with pain control. Blood tests will be rechecked in the morning. I advised him that he would need to be able to be up and ambulating safely and have his blood sugars fairly well controlled before he will be ready to be discharged home. He agreed with this. He will be a FULL CODE.
[2017-03-15 02:21] VITALS: BP 139/65
[2017-03-15 06:44] VITALS: BP 131/75
--- NOTE | 2017-03-15 08:39 | Provider's Discharge Care Plan ---
Problem, Goal, Plan Problem List 1. Dehydration Goals: Improve disease control, Improve function, Improved health/wellness, Increase independence Instructions: Follow up as directed, Increase activity level, Take meds as directed, Drink small amts of liquids frequently. 2. Gastroenteritis and colitis, viral Goals: Improve disease control, Improve function, Improved health/wellness, Increase independence Instructions: Follow up as directed, Increase activity level, Take meds as directed, Call doctor if diarrhea reasumes or if you notice blood in stools 3. Uncontrolled diabetes mellitus Goals: Improve disease control, Improve function, Improved health/wellness, Increase independence Instructions: Follow up as directed, Increase activity level, Take meds as directed, Continue usual doses of Lantus insulin and Apidra insulin 4. Nicotine dependence Goals: Improve disease control, Improve function, Improved health/wellness Instructions: Follow up as directed, Increase activity level, Take meds as directed, Reduce stress, Stop smoking, Use nicotine patches if helpful.
--- NOTE | 2017-03-24 07:57 | ED MAR SUMMARY ---
..... Medication Administration Record [facility] [address] [place] [address] Patient: TEX GIRON Visit ID: [id number] 61y, M Weight: 127.0 kg Height/Length: 74 in BMI: 36 ALLERGIES: No Known Drug Allergy Start 13:35 03/14/2017 Palmira Mejía R.N. Medication Administered: IV NS (SALINE), Dose: IV Fluids, Rate: 999 mL/hr, Dispensed: 1000 mL bag, Site: #1 right AC. Medication Ordered: IV NS : initial bolus 1000 mL (1000 mL/hr), then none - (NOW). Given 13:36 03/14/2017 Palmira Mejía R.N. Medication Administered: ZOFRAN [IVP] (ONDANSETRON HCL), Dose: 8 mg IVP over 3 minute(s), Site: #1 right AC. Medication Ordered: Zofran IV 8 mg (NOW). Given 14:40 03/14/2017 Palmira Mejía R.N. Medication Administered: PHENERGAN [IVP] (PROMETHAZINE HCL), Dose: 25 mg IVP over 2 minute(s), Site: #1 right AC. Medication Ordered: Phenergan IV 25 mg (HIGH ALERT MEDICATION, NOW).
--- NOTE | 2017-03-24 07:57 | ED MED RECONCILIATION SUMMARY ---
Patient: TEX GIRON Medication Reconciliation Report [facility] VisitID: [id number] [place] [address] 61y, M Registration Date/Time: 03/14/2017 Weight: 127.0 kg Height/Length: 74 in. BMI: 36.0 ALLERGIES: No Known Drug Allergy The patient's Home Medications are listed below: THE FOLLOWING MEDICATIONS NEED TO BE RECONCILED: Gabapentin Oral (600 mg) 2 tablets, 2x a day Hydrocodone-Acetaminophen Oral (10-325 mg) 1 tablet, 2x a day Insulin Regular Human Injection (100 unit/mL) Lantus Subcutaneous 50 units, 2x a day The source(s) of the original Home Medication information: Not obtained. The following Medications were given to the patient in the Emergency Department: IV NS IV Fluids bolus 0, then 999 mL/hr, administered: 03/14/2017 1:35:00 PM Zofran [IVP] IVP 8 mg, administered: 03/14/2017 1:36:00 PM PHENERGAN [IVP] IVP 25 mg, administered: 03/14/2017 2:40:00 PM The following Medications were prescribed to the patient: None.
--- NOTE | 2017-03-24 07:57 | ED DISCHARGE INSTRUCTIONS ---
Patient: TEX GIRON General Instructions [facility] VisitID: [id number] [address] [place] [place] [address] 61y, M Registration Date/Time: 03/14/2017 Acute infectious colitis. No ischemic colitis. Moderate hyperglycemia. (Electronically signed by Angela Jones MD 03/14/2017 22:24)
--- NOTE | 2017-03-24 07:57 | ED MAR SUMMARY ---
..... Medication Administration Record [facility] [address] [place] [address] Patient: TEX GIRON Visit ID: [id number] 61y, M Weight: 127.0 kg Height/Length: 74 in BMI: 36 ALLERGIES: No Known Drug Allergy Start 13:35 03/14/2017 Palmira Mejía R.N. Medication Administered: IV NS (SALINE), Dose: IV Fluids, Rate: 999 mL/hr, Dispensed: 1000 mL bag, Site: #1 right AC. Medication Ordered: IV NS : initial bolus 1000 mL (1000 mL/hr), then none - (NOW). Given 13:36 03/14/2017 Palmira Mejía R.N. Medication Administered: ZOFRAN [IVP] (ONDANSETRON HCL), Dose: 8 mg IVP over 3 minute(s), Site: #1 right AC. Medication Ordered: Zofran IV 8 mg (NOW). Given 14:40 03/14/2017 Palmira Mejía R.N. Medication Administered: PHENERGAN [IVP] (PROMETHAZINE HCL), Dose: 25 mg IVP over 2 minute(s), Site: #1 right AC. Medication Ordered: Phenergan IV 25 mg (HIGH ALERT MEDICATION, NOW).
--- NOTE | 2017-03-24 07:57 | ED MED RECONCILIATION SUMMARY ---
Patient: TEX GIRON Medication Reconciliation Report [facility] VisitID: [id number] [place] [address] 61y, M Registration Date/Time: 03/14/2017 Weight: 127.0 kg Height/Length: 74 in. BMI: 36.0 ALLERGIES: No Known Drug Allergy The patient's Home Medications are listed below: THE FOLLOWING MEDICATIONS NEED TO BE RECONCILED: Gabapentin Oral (600 mg) 2 tablets, 2x a day Hydrocodone-Acetaminophen Oral (10-325 mg) 1 tablet, 2x a day Insulin Regular Human Injection (100 unit/mL) Lantus Subcutaneous 50 units, 2x a day The source(s) of the original Home Medication information: Not obtained. The following Medications were given to the patient in the Emergency Department: IV NS IV Fluids bolus 0, then 999 mL/hr, administered: 03/14/2017 1:35:00 PM Zofran [IVP] IVP 8 mg, administered: 03/14/2017 1:36:00 PM PHENERGAN [IVP] IVP 25 mg, administered: 03/14/2017 2:40:00 PM The following Medications were prescribed to the patient: None.
--- NOTE | 2017-03-24 07:57 | ED DISCHARGE INSTRUCTIONS ---
Patient: TEX GIRON General Instructions [facility] VisitID: [id number] [address] [place] [place] [address] 61y, M Registration Date/Time: 03/14/2017 Acute infectious colitis. No ischemic colitis. Moderate hyperglycemia. (Electronically signed by Angela Jones MD 03/14/2017 22:24)
== END 2017-03-15 09:54 | disposition home or self-care (01) ==
LOC: ED SRH 13:03 → TRANS SRH 16:20 → ACUTE3 SRH 18:10 → ACUTE2 SRH 18:39
PROVIDERS: ADMIT Emergency Medicine
DX: R19.7 Diarrhea, unspecified (principal); R11.2 Nausea with vomiting, unspecified; E87.6 Hypokalemia; E11.65 Type 2 diabetes mellitus with hyperglycemia; E11.40 Type 2 diabetes mellitus with diabetic neuropathy, unspecified; Z79.4 Long term (current) use of insulin; R25.1 Tremor, unspecified; J44.9 Chronic obstructive pulmonary disease, unspecified; F17.210 Nicotine dependence, cigarettes, uncomplicated; Z86.19 Personal history of other infectious and parasitic diseases
CPT/HCPCS: 29230; 29244; 29253; 29254; 90004; 90047; 90074; 90100; 90301; 90616; 92610; 92720; 95059